=== PATIENT | female | born 1965 | race African-American/Black ===

== ENCOUNTER 2019-03-02 10:38 | Day surgery (SDC) | payer OTHER ==
[~2019-03-02 10:38] MED LIST: ALPR1TAB10 PO; ALPR1TAB6 PO; AMLO10TA8 PO; AMLO1TAB97 PO; ATOR40TA59 PO; BYSTOLIC10 MG PO; CLON0.1T PO; DEXT10TA23 PO; HYDR-3135 PO; HYDR10FO2 RC; HYDROCODONE-IB1 EAC3 PO; LABE200T4 PO; LISD40CA3 PO; LOSA1TAB22 PO; METO-247 PO; METO10TA PO; MORP30CA14 PO; OXYC10TA46 PO; PANT20TA3 PO; PANT40TA5 PO
[2019-03-02] MEDS ORDERED: IV RINGERS,LACTATED 1000ML 1,000 ML IV SCH (11:30)
[2019-03-02] MEDS ORDERED: GELATIN SPONGE SIZE 100. ONE (12:18)
[2019-03-02] MEDS ORDERED: CHLORHEXIDINE 0.12% 15 ML MOUTHWASH. ONE (12:19)
[2019-03-02] MEDS ORDERED: BUPIVAC MPF-EPI 0.5%-1:200000 30 ML VIAL. ONE (12:19)
[2019-03-02] MEDS ORDERED: fentaNYL PF VIAL 100 MCG/2 ML VIAL ONE ×2 (13:17→14:44)
[2019-03-02] MEDS ORDERED: MIDAZOLAM HCL/PF 2 MG/2 ML VIAL. ONE (13:18)
[2019-03-02] MEDS ORDERED: ceFAZolin 2GM PREMIX 2 GM/50 ML BAG IV ONE (14:00)
--- NOTE | 2019-03-02 14:08 | PDOC4 ---
OPERATIVE NOTE Date: Date: Mar 02, 2019 Pre-Op Diagnosis: asthma COPD Anxiety carious, non restorable tooth #5 Post-Op Diagnosis: asthma COPD Anxiety carious, non restorable tooth #5 Procedure Performed: surgical removal of # 5 Surgeon: naina Anesthesia Type: b Blood Loss: 10<ml Specimans Obtained: tooth disposed of in OR Findings: see dictation Complications: none Operative Note: see dictation SERAFIN PINTO DMD Mar 02, 2019 14:07
[2019-03-02] MEDS ORDERED: LIDOCAINE 2% PF 5 ML VIAL. ONE (14:19)
[2019-03-02] MEDS ORDERED: PROPOFOL 20 ML IV ONE (14:19)
[2019-03-02] MEDS ORDERED: HYDROcodone/APAP 10/325 1 TAB TABLET ONE (14:44)
[2019-03-02] MEDS ORDERED: HYDROcodone/APAP 10/325 1 TAB TABLET PO ONE (14:45)
[2019-03-02] MEDS: fentaNYL PF VIAL 100 MCG/2 ML VIAL IV PRN ×2 (14:55→15:30)
[2019-03-02 15:30] VITALS: BP 156/84
--- NOTE | 2019-03-02 19:05 | OP ---
DATE OF SURGERY: 03/02/2019 OPERATING SERVICE: interface designer. ATTENDING PHYSICIAN: lEder Pinto DMD PREOPERATIVE DIAGNOSES: Anxiety, obesity, obstructive sleep apnea, asthma, hypertension, post-caries nonrestorable tooth #5. POSTOPERATIVE DIAGNOSES: Anxiety, obesity, obstructive sleep apnea, asthma, hypertension, post-caries nonrestorable tooth #5. PROCEDURES PERFORMED: Surgical removal of one tooth, tooth #5. BRIEF HISTORY: The patient was referred to our clinic by Dr. Goins for extraction of carious, fractured tooth #5. Considering her significant past medical history and anxiety and sedation given her multiple comorbidities and Mallampati status, I felt the safest option would be to escalate the setting of care to the operating room. The patient was affable with our plan. History and physical was taken, performed in our clinic and permit was obtained. DRAINS PLACED: None. COMPLICATIONS: None noted at the time of surgery. SPECIMENS: None sent. Tooth was disposed off in the OR. ESTIMATED BLOOD LOSS: Less than 5 mL. OPERATIVE DESCRIPTION: After the history and physical was updated in the preoperative holding area, the patient was transported by the Anesthesia Service to the operating suite, placed in the supine position. General anesthesia was induced. A timeout was initiated and general anesthesia was induced. MAC anesthetic was performed. Care was taken to place a bite block with gauze and the airway was secured with a pharyngeal curtain and the patient was ventilating spontaneously throughout the procedure. Local anesthesia in the form of 0.5% Marcaine, 1:200,000 epinephrine; a total of 8 mL were administered. A 15 blade was utilized to create a full thickness mucoperiosteal flap, which was reflected laterally with a periosteal elevator. Tooth #5 was luxated, elevated and extracted with the forceps and minor alveoloplasty was performed with a rongeur and bone file and copious normal sterile saline irrigation and curettage. The site was oversewn with 3-0 chromic gut sutures and 2 [id number]. The site was hemostatic. Gauze was removed and the patient was turned to the care of Anesthesia where she was allowed to return to consciousness without complication and transported to the PACU in stable condition. ELDER PINTO DMD DR: VALERIANO/bessy JOB#: [id number] / [id number]
[2019-03-03] MEDS ORDERED: LIDOCAINE 1% PF 2 ML VIAL. ID PRN (07:00)
[2019-03-03] MEDS ORDERED: HYDROmorphone 2 MG/ML VIAL IV PRN (07:00)
[2019-03-03] MEDS ORDERED: IV RINGERS,LACTATED 1000ML 1,000 ML IV SCH (07:00)
[2019-03-03] MEDS ORDERED: ONDANSETRON PF 4 MG/2 ML VIAL. IV PRN (07:00)
[2019-03-03] MEDS ORDERED: PROCHLORPERAZINE 10 MG/2 ML VIAL. IV PRN (07:00)
[2019-03-03] MEDS ORDERED: fentaNYL PF VIAL 100 MCG/2 ML VIAL IV PRN (07:00)
[2019-03-03] MEDS ORDERED: MORPHINE SULFATE 2 MG/ML VIAL. IV PRN (07:00)
== END 2019-03-02 15:38 | disposition home or self-care (01) ==
LOC: SURG 10:38
PROVIDERS: ATTEND Dentist Oral and Maxillofacial Surgery
DX: K02.9 Dental caries, unspecified (principal); I10 Essential (primary) hypertension; J44.9 Chronic obstructive pulmonary disease, unspecified; F41.9 Anxiety disorder, unspecified; G47.33 Obstructive sleep apnea (adult) (pediatric); G47.419 Narcolepsy without cataplexy; K21.9 Gastro-esophageal reflux disease without esophagitis; Z79.899 Other long term (current) drug therapy; Z90.49 Acquired absence of other specified parts of digestive tract; Z98.890 Other specified postprocedural states; E66.9 Obesity, unspecified
CPT/HCPCS: 41874; 41899; J0696; J2001; J2250; J2704; J3010; J3490